=== PATIENT | male | born 1980 | race Native Hawaiian/Other Pacific Islander ===

== ENCOUNTER 2016-10-16 02:09 | Emergency (ER) | payer OTHER ==
[~2016-10-16] VITALS: Ht 167.6 cm; Wt 74.8 kg
[2016-10-16 02:20] VITALS: TEMP 97.9
[2016-10-16 03:10] VITALS: BP 114/81
== END 2016-10-16 03:54 | disposition short-term general hospital (02) ==
LOC: ED 02:09
DX: K40.30 Unilateral inguinal hernia, with obstruction, without gangrene, not specified as recurrent (principal)
CPT/HCPCS: 96361; 96374; 96375; 99284; J2270; J2405